=== PATIENT | female | born 1985 | race Caucasian/White ===

== ENCOUNTER 2023-12-27 15:19 | Outpatient (AMB) | payer OTHER, SELFPAY ==
--- NOTE | 2023-12-27 15:30 | MHC.PC.OV ---
Vital Signs 12/27/23 15:31 Height 5 ft 1.25 in Weight 120 lb BMI 22.5 BP 102/60 Blood Pressure Location Rt brachial Position Sitting Respiration 12 Pulse 84 Pulse Source Pulse Oximeter Pulse Oximetry (%) 99 Oxygen Delivery Method Room Air Intake Visit Reasons: Establish Care / Physical Intake Note: Patient reports she has no concerns, would like Iron refilled. Wire Bender Hand Required: No Accompanied by: Self / Same As Patient Allergies No Known Allergies Allergy (Verified 12/27/23 15:35) Tobacco use date assessed: 12/27/23 Dental Screening Dental Screen Date: 12/27/23 Did you have a dental visit in the last 12 months?: Yes Did you have a dental problem in the last 6 months where you did not have access to dental care?: No Was dental information given to patient?: Patient has dentist HPI HPI Comments History of Present Illness Details The patient is a 38-year-old female with past medical history of anemia, food sensitivities presenting for follow-up 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 Has had issues with fatigue at times. Her boyfriend committed suicide a few years ago. This has taken some time to heal from. When she was seen last summer she had thrown her back out. She had previously been following at [facility]. When flares which is infrequent she increases the exercises she learned at home. Gynecology in 10/10/2022 Following with [facility] [employer]: Denies weight loss, fever and chills. HEENT: Denies changes in vision and hearing. RESPIRATORY: Denies SOB and cough. CV: Denies palpitations and CP GI: Denies abdominal pain, nausea, vomiting and diarrhea. : Denies dysuria and urinary frequency. MSK: Denies new myalgia and joint pain. SKIN: Denies rash and pruritus. NEUROLOGICAL: Denies headache PSYCHIATRIC: Denies recent changes in mood. PHYSICAL EXAM: GENERAL: Alert and oriented x 3. NAD EYES: EOMI. Anicteric. HENT: Moist mucous membranes. No scleral icterus. No cervical lymphadenopathy. LUNGS: Clear to auscultation bilaterally. CARDIOVASCULAR: Regular rate and rhythm. No murmur. No JVD. ABDOMEN: Soft, non-tender +bs EXTREMITIES: No edema. Non-tender. SKIN: No rashes or lesions. Warm. NEUROLOGIC: No focal neurological deficits. CN II-XII grossly intact PSYCHIATRIC: Cooperative. Appropriate mood and affect [facility] Medical History Anemia Surgical History No pertinent past surgical history Family History Father Cancer Mother Diabetes Hypertension Sister Multiple sclerosis Social History Household Members: None Housing: House Alcohol intake: current Alcohol intake frequency: a few times a month Patient Tobacco Use Status: Never used Tobacco e-Cigarette/Vaping Use: Never Used service: No Current occupational status: employed Current occupation: [employer] Cognitive needs: No Hearing needs: No Vision needs: No Questionnaire PHQ-9 Over the last 2 weeks, how often have you been bothered by any of the following problems? 1. Little interest or pleasure in doing things: not at all 2. Feeling down, depressed, or hopeless: not at all 3. Trouble falling or staying asleep, or sleeping too much: several days 4. Feeling tired or having little energy: several days 5. Poor appetite or overeating: several days 6. Feeling bad about yourself - or that you are a failure or have let yourself or your family down: not at all 7. Trouble concentrating on things, such as reading the newspaper or watching television: not at all 8. Moving or speaking so slowly that other people could have noticed. Or the opposite - being so fidgety or restless that you have been moving around a lot more than usual: not at all 9. Thoughts that you would be better off or of hurting yourself in some way: not at all Total score: 3 Depression Screening Interpretation: Negative (neg) Depression Screening Done: Yes 04213 - PHQ-9 Billing: Yes Source: Developed by Drs. Guzman France, Donna Reagan, Darrel Church and colleagues, with an educational hugh from [employer]. Thrive Questionnaire Date Thrive assessed: 12/27/23 I am a: Patient What is your living situation today?: I have a steady place to live Within the past 12 months, did the food you bought not last and you didn't have the money to get more?: Never true Within the past 12 months, did you worry whether your food would run out before you got money to buy more?: Never true Do you have trouble paying for medicines?: No Do you have trouble getting transportation to medical appointments?: No Do you have trouble paying your heating and electricity bill?: No Do you have trouble taking care of your child, family member or friend?: No Do you have trouble with day-to-day activities such as bathing, preparing meals, shopping, managing finances, etc.?: No Are you currently unemployed and looking for a job?: No Are you interested in more education?: No Please select the resources that you would like help with: None Currently or been in a relationship where the following occur: No concerns reported THRIVE Score: 0 AUDIT C Alcohol Use Questionnaire (AUDIT-C) 1. How often do you have a drink containing alcohol?: Monthly or less 2. How many drinks containing alcohol do you have on a typical day when you are drinking?: 1 or 2 3. How often do you have six or more drinks on one occasion?: Never Total Score: 1 Score Reviewed/Action Taken: Yes ARIS-7 AMB Questionnaire ARIS-7 Date ARIS - 7 assessed: 12/27/23 Feeling nervous, anxious, or on edge: 1 = Several days Not being able to stop or control worryin = Several days Worrying too much about different things: 1 = Several days Trouble relaxin = Several days Being so restless that it is hard to sit still: 0 = Not at all Becoming easily annoyed or irritable: 1 = Several days Feeling afraid as if something awful might happen: 0 = Not at all Total ARIS-7 score (0-4 normal; 5-9 mild; 10-14 moderate; 15-21 severe): 5 Source: Developed by Drs. Guzman France, Donna Reagan, Darrel Church and colleagues, with an educational hugh from [employer]. ARIS-7 Assessment Billing ARIS-7 Assessment Tool: ARIS-7 Assessment 87463 (reviewed. tried lorazepam in the past. made groggy. does not want ssri. doing ok) Physical exam (Primary Care) Vital Signs: Last Vital Signs Pulse 84 12/27/23 15:31 Resp 12 12/27/23 15:31 BP 102/60 12/27/23 15:31 Pulse Ox 99 12/27/23 15:31 Oxygen Delivery Method Room Air 12/27/23 15:31 BMI result Body Mass Index 22.5 Tobacco/Smoking Status: Tobacco use Status Tobacco use date assessed 12/27/23 12/27/23 15:48 Patient Tobacco Use Status Never used Tobacco 12/27/23 15:48 e-Cigarette/Vaping Use Never Used 12/27/23 15:48 PHQ-9: PHQ-9 Score PHQ-9: Total score 3 12/27/23 22:58 Depression Screening Interpretation: Negative (neg) Thrive Assessment: Date of Thrive Assessment Date Thrive assessed 12/27/23 12/27/23 15:48 Currently or been in a relationship where the following occur: No concerns reported Assessment and Plan Assessment & Plan (1) Anemia: Code(s): D64.9 - Anemia, unspecified Qualifiers: Anemia type: iron deficiency Iron deficiency anemia type: unspecified iron deficiency Qualified Code(s): D50.9 - Iron deficiency anemia, unspecified Plan: Labs ordered. Currently taking iron (2) Fatigue: Code(s): R53.83 - Other fatigue Qualifiers: Fatigue type: chronic, unspecified Qualified Code(s): R53.82 - Chronic fatigue, unspecified Plan: Multifactorial. continue to monitor depression anxiety and labs (3) Screening for hyperlipidemia: Code(s): Z13.220 - Encounter for screening for lipoid disorders Orders: Orders Complete Blood Count Auto Diff Today D64.9 - Anemia, unspecified, R53.83 - Other fatigue, Z13.220 - Encounter for screening for lipoid disorders, Z13.228 - Encounter for screening for other metabolic disorders Comprehensive Met. Panel Today D64.9 - Anemia, unspecified, R53.83 - Other fatigue, Z13.220 - Encounter for screening for lipoid disorders, Z13.228 - Encounter for screening for other metabolic disorders Lipid Panel Today D64.9 - Anemia, unspecified, R53.83 - Other fatigue, Z13.220 - Encounter for screening for lipoid disorders, Z13.228 - Encounter for screening for other metabolic disorders Vitamin B12 and Folate Today D64.9 - Anemia, unspecified, R53.83 - Other fatigue, Z13.220 - Encounter for screening for lipoid disorders, Z13.228 - Encounter for screening for other metabolic disorders IRON PROFILE Today D64.9 - Anemia, unspecified, R53.83 - Other fatigue, Z13.220 - Encounter for screening for lipoid disorders, Z13.228 - Encounter for screening for other metabolic disorders Referrals Dermatology Referral Z12.83 - Encounter for screening for malignant neoplasm of skin Medications: New ferrous sulfate 325 mg PO DAILY 90 tabs 3RF Coding Level of Care Code Est Pt Level 4 (68167) Complex EM visit Add On G2211 Diagnoses Iron deficiency anemia, unspecified iron deficiency anemia type D50.9 Anemia type: iron deficiency Iron deficiency anemia type: unspecified iron deficiency Chronic fatigue R53.82 Fatigue type: chronic, unspecified Screening for hyperlipidemia Z13.220 Additional Codes ARIS-7 Assessment Billing - ARIS-7 Assessment Tool: ARIS-7 Assessment 18601 ([id number])
[2023-12-27 15:31] VITALS: BP 102/60; PULSE 84; RESP 12; O2SAT 99; BMI 22.5
== END 2023-12-27 16:22 | disposition home or self-care (01) ==
PROVIDERS: PCP Internal Medicine; Visit Provider Internal Medicine
DX: D50.9 Iron deficiency anemia, unspecified (principal); R53.82 Chronic fatigue, unspecified; Z13.220 Encounter for screening for lipoid disorders
CPT/HCPCS: 99214

== ENCOUNTER 2023-12-29 10:15 | Outpatient (REF) | payer OTHER, SELFPAY ==
[2023-12-29 14:13] LABS: MANUAL DIFF FLAG NO
[2023-12-29 14:19] LABS: Basophils Percent Auto 0.5 % (0-2); Eosinophils Absolute Auto 0.1 X10*3/uL (0.0-0.4); Eosinophils Percent Auto 0.9 % (0-4); Hematocrit 36.2 % (37.0-47.0); Imm Gran Abs Auto 0.04 X10*3/uL (0.00-0.03); Imm Gran Pct Auto 0.6 % (0.0-0.4); Lymphocytes Absolute Auto 2.3 X10*3/uL (1.2-4.9); Lymphocytes Percent Auto 35.8 % (20-40); Mean Corpuscular HGB Conc 33.1 g/dl (31.0-35.0); Mean Corpuscular Hemoglobin 30.2 pg (27.0-33.0); Mean Platelet Volume 10.1 fL (9.4-12.3); Monocytes Absolute Auto 0.4 X10*3/uL (0.1-1.2); Monocytes Percent Auto 6.8 % (2-11); Neutrophils Absolute Auto 3.6 x10*3/uL (2.0-8.3); Neutrophils Percent Auto 55.4 % (45-73); Platelet Count 246 X10*3/uL (160-400); Red Blood Count 3.98 X10*6/uL (4.20-5.50); Red Cell Distribution Width 13.1 % (11.0-16.0); White Blood Count 6.4 X10*3/uL (4.8-10.8)
[2023-12-29 14:49] LABS: Alanine Aminotransferase 9 U/L (0-31); Albumin Level 4.3 g/dL (3.5-5.0); Alkaline Phosphatase 33 U/L (39-117); Anion Gap 10 (12-20); Aspartate Amino Transferase 17 U/L (5-31); Bilirubin Total 0.7 mg/dL (0.0-1.0); Blood Urea Nitrogen 10 mg/dL (9-16); Calcium 9.4 mg/dL (8.4-10.2); Carbon Dioxide 27 mmol/L (22-29); Chloride 106 mmol/L (96-108); Cholesterol 196 mg/dL (<200); Estimated Glomerular Filt Rate > 60; Glucose Random 88 mg/dL (60-115); HDL Cholesterol 59 mg/dL (>40); Iron 98 mcg/dL (30-160); LDL Cholesterol Calculated 125 mg/dL (<100); Percent Iron Saturation 37 % (15-50); Potassium 4.3 mmol/L (3.3-5.1); Sodium 139 mmol/L (135-145); Total Iron Binding Capacity 262 mcg/dL (228-428); Total Protein 6.4 g/dL (6.5-8.0); Triglycerides 61 mg/dL (<150); Unsaturated Iron Binding 164 ug/dL
[2023-12-29 15:06] LABS: Folate 12.9 ng/mL (> or = 4.0); Vitamin B12 493 pg/mL (200-900)
== END 2023-12-29 10:16 | disposition home or self-care (01) ==
LOC: HO.WFDLDS 10:15
PROVIDERS: Visit Provider Internal Medicine
DX: R53.83 Other fatigue (principal); D64.9 Anemia, unspecified; Z13.220 Encounter for screening for lipoid disorders; Z13.228 Encounter for screening for other metabolic disorders
CPT/HCPCS: 36415; 80053; 80061; 82607; 82746; 83540; 85025

== ENCOUNTER → 2024-06-27 15:06 | Outpatient (BNVA) | payer OTHER, SELFPAY | PROVIDERS: PCP Internal Medicine; Visit Provider Internal Medicine | DX: Z00.00 Encounter for general adult medical examination without abnormal findings (principal); M54.50 Low back pain, unspecified; D50.9 Iron deficiency anemia, unspecified; Z13.220 Encounter for screening for lipoid disorders; Z13.228 Encounter for screening for other metabolic disorders | CPT/HCPCS: 96127 ==

== ENCOUNTER 2024-06-27 15:43 | Outpatient (REF) | payer OTHER, SELFPAY ==
[2024-06-27 17:51] LABS: MANUAL DIFF FLAG NO
[2024-06-27 18:08] LABS: Basophils Absolute Auto 0.1 X10*3/uL (0.0-0.2); Basophils Percent Auto 0.7 % (0-2); Eosinophils Absolute Auto 0.1 X10*3/uL (0.0-0.4); Eosinophils Percent Auto 0.9 % (0-4); Hematocrit 36.8 % (37.0-47.0); Hemoglobin 12.2 g/dl (12.0-16.0); Imm Gran Abs Auto 0.01 X10*3/uL (0.00-0.03); Imm Gran Pct Auto 0.1 % (0.0-0.4); Lymphocytes Absolute Auto 2.8 X10*3/uL (1.2-4.9); Lymphocytes Percent Auto 41.2 % (20-40); Mean Corpuscular HGB Conc 33.2 g/dl (31.0-35.0); Mean Corpuscular Hemoglobin 29.7 pg (27.0-33.0); Mean Corpuscular Volume 89.5 fL (80.0-98.0); Mean Platelet Volume 9.8 fL (9.4-12.3); Monocytes Absolute Auto 0.4 X10*3/uL (0.1-1.2); Monocytes Percent Auto 6.2 % (2-11); Neutrophils Absolute Auto 3.5 x10*3/uL (2.0-8.3); Neutrophils Percent Auto 50.9 % (45-73); Platelet Count 277 X10*3/uL (160-400); Red Blood Count 4.11 X10*6/uL (4.20-5.50); Red Cell Distribution Width 12.7 % (11.0-16.0); White Blood Count 6.8 X10*3/uL (4.8-10.8)
[2024-06-27 18:26] LABS: Alanine Aminotransferase 26 U/L (0-31); Albumin Level 4.5 g/dL (3.5-5.0); Alkaline Phosphatase 41 U/L (39-117); Anion Gap 14 (12-20); Aspartate Amino Transferase 29 U/L (5-31); Bilirubin Total 0.3 mg/dL (0.0-1.0); Blood Urea Nitrogen 15 mg/dL (9-16); Calcium 9.6 mg/dL (8.4-10.2); Carbon Dioxide 27 mmol/L (22-29); Chloride 105 mmol/L (96-108); Cholesterol 234 mg/dL (<200); Estimated Glomerular Filt Rate > 60; Glucose Random 93 mg/dL (60-115); HDL Cholesterol 63 mg/dL (>40); Iron 68 mcg/dL (30-160); LDL Cholesterol Calculated 156 mg/dL (<100); Percent Iron Saturation 25 % (15-50); Potassium 3.7 mmol/L (3.3-5.1); Sodium 142 mmol/L (135-145); Total Iron Binding Capacity 274 mcg/dL (228-428); Total Protein 7.3 g/dL (6.5-8.0); Triglycerides 79 mg/dL (<150); Unsaturated Iron Binding 206 ug/dL
[2024-06-30 14:53] LABS: Hematocrit 37.6 % (35.0-45.0); Hemoglobin 12.5 g/dL (11.7-15.5); MCV 90.2 fL (80.0-100.0); RBC 4.17 Million/uL (3.80-5.10); RDW 12.7 % (11.0-15.0)
== END 2024-06-27 15:44 | disposition home or self-care (01) ==
LOC: HO.WFDLDS 15:43
PROVIDERS: Visit Provider Internal Medicine
DX: Z13.220 Encounter for screening for lipoid disorders (principal); Z13.228 Encounter for screening for other metabolic disorders; D50.9 Iron deficiency anemia, unspecified; M54.50 Low back pain, unspecified; R53.82 Chronic fatigue, unspecified
CPT/HCPCS: 80053; 80061; 83020; 83540; 85014; 85018; 85025; 85041

== ENCOUNTER 2024-08-24 15:05 | Outpatient (AMB) | payer OTHER, SELFPAY ==
--- NOTE | 2024-08-24 15:19 | MHC.PC.OV ---
Vital Signs 08/24/24 15:23 Height 5 ft 1.25 in Weight 120 lb BMI 22.5 BP 98/68 Blood Pressure Location Rt brachial Position Sitting Respiration 12 Pulse 97 Pulse Source Pulse Oximeter Pulse Oximetry (%) 99 Oxygen Delivery Method Room Air Intake Visit Reasons: Increased of Anxiety Intake Note: Increased anxiety Script Worker Required: No Allergies No Known Allergies Allergy (Verified 08/24/24 15:20) Medication List - Last Reconciled 08/24/24 by Jaida Blas PA-C ferrous sulfate 325 mg PO DAILY loratadine (Allergy Relief (loratadine)) 10 mg PO DAILY lysine (L-Lysine) 500 mg PO DAILY multivitamin 1 tab PO DAILY valerian root mg PO Tobacco use date assessed: 06/27/24 Dental Screening Dental Screen Date: 12/27/23 HPI Increased of Anxiety HPI Details Patient is a 39-year-old female with a significant past medical history of anxiety and fatigue presenting today for a problem visit regarding her anxiety. She normally follows with Dr. Stanley was last seen in June for a physical. 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 She is concerned that anxiety is causing physical symptoms. She states that for the last month or so she has been experiencing intermittent palpitations, fluttering and discomfort in her chest and sometimes feeling dizzy or lightheaded. The symptoms are not all related together. They usually happen when she is having a stressful conversation in the last time it happened was when she was going to her mother's oncology appointment. She is the primary caregiver for her was recently diagnosed with stage III lung cancer and has been battling bladder issues. She says that she is getting chemo and radiation and tolerating it well but she has also had radiation to the pelvis and it was causing vaginal pain and she is not tolerating this as much as she would like to be tolerating this. She states that she wants to make sure that this is truly anxiety and she is not ignoring underlying issues. She has been trying to control her anxiety with a therapist and valerian root. [facility] Medical History Anemia Surgical History No pertinent past surgical history Family History Father Cancer Mother Diabetes Hypertension Sister Multiple sclerosis Social History Household Members: None Housing: House Alcohol intake: current Alcohol intake frequency: a few times a month Patient Tobacco Use Status: Never used Tobacco e-Cigarette/Vaping Use: Never Used Second Hand Smoke Exposure: Yes service: No Current occupational status: employed Current occupation: [employer] Cognitive needs: No Hearing needs: No Vision needs: No Questionnaire Thrive Questionnaire Date Thrive assessed: 06/20/24 I am a: Patient What is your living situation today?: I have a steady place to live Within the past 12 months, did the food you bought not last and you didn't have the money to get more?: Never true Within the past 12 months, did you worry whether your food would run out before you got money to buy more?: Never true Do you have trouble paying for medicines?: No Do you have trouble getting transportation to medical appointments?: No Do you have trouble paying your heating and electricity bill?: No Do you have trouble taking care of your child, family member or friend?: No Do you have trouble with day-to-day activities such as bathing, preparing meals, shopping, managing finances, etc.?: No Are you currently unemployed and looking for a job?: No Are you interested in more education?: No Please select the resources that you would like help with: None Currently or been in a relationship where the following occur: No concerns reported THRIVE Score: 0 ARIS-7 AMB Questionnaire ARIS-7 Date ARIS - 7 assessed: 12/27/23 Source: Developed by Drs. Guzman France, Donna Reagan, Darrel Church and colleagues, with an educational hugh from [employer]. Physical exam (Primary Care) Tobacco/Smoking Status: Tobacco use Status Tobacco use date assessed 06/27/24 06/27/24 15:18 Patient Tobacco Use Status Never used Tobacco 06/27/24 15:14 e-Cigarette/Vaping Use Never Used 06/27/24 15:14 Thrive Assessment: Date of Thrive Assessment Date Thrive assessed 06/20/24 06/27/24 15:14 Currently or been in a relationship where the following occur: No concerns reported Const Orientation/consciousness: patient oriented x3 [facility] Ears: hearing grossly normal bilaterally Neck Thyroid: Thyroid normal Lymphatic: no lymphadenopathy noted Resp Auscultation: clear to auscultation bilaterally Cardio Rate: regular rate Rhythm: regular rhythm Heart sounds: S1 normal heart sound present and S2 normal heart sound present GI Inspection: Yes normal to inspection Palpation (GI): Soft to palpation and Other GI palpation findings present (nontender, no cva tenderness) Auscultation: normoactive bowel sounds Rectal Exam - Female: deferred Skin General skin exam: no rashes or lesions noted Neuro General: patient oriented x3, gait normal and no focal motor deficits Results Reviewed Results Reviewed: Laboratory Tests 06/27/24 15:44 WBC 6.8 RBC 4.11 L RBC (Send Out) 4.17 Hgb 12.2 Hgb (Send Out) 12.5 Hct 36.8 L Hct (Send Out) 37.6 Plt Count 277 Sodium 142 Potassium 3.7 Chloride 105 Carbon Dioxide 27 Anion Gap 14 BUN 15 Creatinine 0.76 Estimated GFR > 60 Random Glucose 93 Calcium 9.6 Iron 68 AST 29 ALT 26 Alkaline Phosphatase 41 Triglycerides 79 Cholesterol 234 H LDL Cholesterol, Calc 156 H HDL Cholesterol 63 Coding Level of Care Code Est Pt Level 4 (88461) Complex EM visit Add On G2211 Diagnoses Palpitations R00.2 Generalized anxiety disorder F41.1 Assessment & Plan Assessment & Plan (1) Palpitations: Code(s): R00.2 - Palpitations Category: Medical Plan: EKG today is normal sinus rhythm. EKG interpreted by myself and Dr. Stanley. Orthostats WNL. Holter monitor ordered. Labs ordered today. We did discuss triggers of palpitations. Short term follow up. If anything worsens or changes she will follow up sooner. (2) Generalized anxiety disorder: Code(s): F41.1 - Generalized anxiety disorder Category: Medical Plan: We will treat with Lexapro. Discussed risks and benefits and adverse effects of this medication. Orders: Orders Basic Metabolic Panel Today F41.1 - Generalized anxiety disorder, R00.2 - Palpitations TSH reflex Free T4 Today F41.1 - Generalized anxiety disorder, R00.2 - Palpitations AMB EKG-In Office Today F41.1 - Generalized anxiety disorder, R00.2 - Palpitations Complete Blood Count Auto Diff Today F41.1 - Generalized anxiety disorder, R00.2 - Palpitations Vitamin B12 and Folate Today F41.1 - Generalized anxiety disorder, R00.2 - Palpitations ECG holter monitor 24 hour Today F41.1 - Generalized anxiety disorder, R00.2 - Palpitations Medications: New escitalopram oxalate (Lexapro) 5 mg PO DAILY 90 tabs 0RF
[2024-08-24 15:23] VITALS: BP 98/68; PULSE 97; RESP 12; O2SAT 99; BMI 22.5
== END 2024-08-24 16:04 | disposition home or self-care (01) ==
LOC: HO.HMCFM 15:06
PROVIDERS: PCP Internal Medicine; Visit Provider Physician Assistant
DX: R00.2 Palpitations (principal); F41.1 Generalized anxiety disorder

== ENCOUNTER 2024-08-25 15:37 | Outpatient (REF) | payer OTHER, SELFPAY ==
[2024-08-25 17:39] LABS: MANUAL DIFF FLAG NO
[2024-08-25 17:56] LABS: Basophils Percent Auto 0.3 % (0-2); Eosinophils Percent Auto 0.1 % (0-4); Hematocrit 35.7 % (37.0-47.0); Hemoglobin 11.7 g/dl (12.0-16.0); Imm Gran Abs Auto 0.06 X10*3/uL (0.00-0.03); Imm Gran Pct Auto 0.7 % (0.0-0.4); Lymphocytes Absolute Auto 2.1 X10*3/uL (1.2-4.9); Lymphocytes Percent Auto 23.1 % (20-40); Mean Corpuscular HGB Conc 32.8 g/dl (31.0-35.0); Mean Corpuscular Hemoglobin 29.3 pg (27.0-33.0); Mean Corpuscular Volume 89.3 fL (80.0-98.0); Mean Platelet Volume 9.8 fL (9.4-12.3); Monocytes Absolute Auto 0.4 X10*3/uL (0.1-1.2); Monocytes Percent Auto 4.7 % (2-11); Neutrophils Absolute Auto 6.4 x10*3/uL (2.0-8.3); Neutrophils Percent Auto 71.1 % (45-73); Platelet Count 302 X10*3/uL (160-400)
[2024-08-25 17:59] LABS: Anion Gap 13 (12-20); Blood Urea Nitrogen 15 mg/dL (9-16); Calcium 9.7 mg/dL (8.4-10.2); Carbon Dioxide 26 mmol/L (22-29); Chloride 104 mmol/L (96-108); Estimated Glomerular Filt Rate > 60; Glucose Random 91 mg/dL (60-115); Potassium 3.9 mmol/L (3.3-5.1); Sodium 139 mmol/L (135-145)
[2024-08-25 18:46] LABS: Vitamin B12 575 pg/mL (200-900)
== END 2024-08-25 15:38 | disposition home or self-care (01) ==
LOC: HO.WFDLDS 15:37
PROVIDERS: Visit Provider Physician Assistant
DX: R00.2 Palpitations (principal); F41.1 Generalized anxiety disorder
CPT/HCPCS: 36415; 80048; 82607; 82746; 84443; 85025

== ENCOUNTER → 2024-09-07 12:56 | Outpatient (REF) | payer OTHER, SELFPAY | LOC: HO.CARD 12:56 | PROVIDERS: Visit Provider Physician Assistant | DX: R00.2 Palpitations (principal); F41.1 Generalized anxiety disorder | CPT/HCPCS: 93225 ==

== ENCOUNTER 2024-09-14 14:51 | Outpatient (AMB) | payer OTHER, SELFPAY ==
--- NOTE | 2024-09-14 15:09 | MHC.PC.OV ---
Vital Signs 09/14/24 15:13 Height 5 ft 1.25 in Weight 120 lb 2 oz BMI 22.5 BP 106/62 Blood Pressure Location Rt brachial Position Sitting Respiration 12 Pulse 72 Pulse Source Pulse Oximeter Pulse Oximetry (%) 98 Oxygen Delivery Method Room Air Intake Visit Reasons: anxiety med Intake Note: Follow up anxiety medication Survey Research Analyst Required: No Allergies No Known Allergies Allergy (Verified 09/14/24 15:10) Medication List - Last Reconciled 09/14/24 by Jaida Blas PA-C escitalopram oxalate (Lexapro) 5 mg PO DAILY ferrous sulfate 325 mg PO DAILY loratadine (Allergy Relief (loratadine)) 10 mg PO DAILY lysine (L-Lysine) 500 mg PO DAILY multivitamin 1 tab PO DAILY valerian root mg PO Tobacco use date assessed: 09/14/24 Dental Screening Dental Screen Date: 09/14/24 Did you have a dental visit in the last 12 months?: Yes Did you have a dental problem in the last 6 months where you did not have access to dental care?: No Was dental information given to patient?: Patient has dentist HPI anxiety med HPI Details Patient is a 39-year-old female who presents today for follow up. CV: Last appointment she was seen for palpitations and dizziness associated with anxiety/panic. She did her Holter a couple days ago. Results have not yet returned. She states that since our visit the palpitations and dizziness have been significantly improved. Psych: We did start Lexapro but she did take it for a few days but felt tired with the medication. She was wondering if it was interacting with the valerian root and magnesium so she is stopping this and then planning to restart the Lexapro. She says that the anxiety has gotten better since they went to her mother's last oncology appointment. She is starting work again in about a week and has some anxiety about this as she is used to worrying about her mother every day. No SI/HI. Heme: Has a history of iron-deficiency anemia and she is a little anemic despite taking iron every day. We will recheck this. She says that she switched the brand of the vitamin. [facility] Medical History Anemia Surgical History No pertinent past surgical history Family History Father Cancer Mother Diabetes Hypertension Sister Multiple sclerosis Social History (Updated 09/14/24 @ 15:50 by Saige Simth CMA) Household Members: None Housing: House Alcohol intake: current Alcohol intake frequency: a few times a month Patient Tobacco Use Status: Never used Tobacco e-Cigarette/Vaping Use: Never Used Second Hand Smoke Exposure: Yes Use of substances other than those prescribed or required for medical reasons: No service: No Current occupational status: employed Current occupation: [employer] Current occupational exposures/hazards: No Cognitive needs: No Hearing needs: No Vision needs: No Questionnaire PHQ-9 Over the last 2 weeks, how often have you been bothered by any of the following problems? 1. Little interest or pleasure in doing things: not at all 2. Feeling down, depressed, or hopeless: not at all 3. Trouble falling or staying asleep, or sleeping too much: not at all 4. Feeling tired or having little energy: more than half the days 5. Poor appetite or overeating: not at all 6. Feeling bad about yourself - or that you are a failure or have let yourself or your family down: not at all 7. Trouble concentrating on things, such as reading the newspaper or watching television: not at all 8. Moving or speaking so slowly that other people could have noticed. Or the opposite - being so fidgety or restless that you have been moving around a lot more than usual: not at all 9. Thoughts that you would be better off or of hurting yourself in some way: not at all Total score: 2 Depression Screening Interpretation: Negative Depression Screening Done: Yes 75498 - PHQ-9 Billing: Yes Source: Developed by Drs. Guzman France, Donna Reagan, Darrel Church and colleagues, with an educational hugh from [employer]. Thrive Questionnaire Date Thrive assessed: 09/14/24 I am a: Patient What is your living situation today?: I have a steady place to live Within the past 12 months, did the food you bought not last and you didn't have the money to get more?: Never true Within the past 12 months, did you worry whether your food would run out before you got money to buy more?: Never true Do you have trouble paying for medicines?: No Do you have trouble getting transportation to medical appointments?: No Do you have trouble paying your heating and electricity bill?: No Do you have trouble taking care of your child, family member or friend?: No Do you have trouble with day-to-day activities such as bathing, preparing meals, shopping, managing finances, etc.?: No Are you currently unemployed and looking for a job?: No Are you interested in more education?: No Please select the resources that you would like help with: None Currently or been in a relationship where the following occur: No concerns reported THRIVE Score: 0 AUDIT C Alcohol Use Questionnaire (AUDIT-C) 1. How often do you have a drink containing alcohol?: Monthly or less 2. How many drinks containing alcohol do you have on a typical day when you are drinking?: 1 or 2 3. How often do you have six or more drinks on one occasion?: Never Total Score: 1 ARIS-7 AMB Questionnaire ARIS-7 Date ARIS - 7 assessed: 09/14/24 Feeling nervous, anxious, or on edge: 1 = Several days Not being able to stop or control worryin = Not at all Worrying too much about different things: 1 = Several days Trouble relaxin = Not at all Being so restless that it is hard to sit still: 0 = Not at all Becoming easily annoyed or irritable: 0 = Not at all Feeling afraid as if something awful might happen: 0 = Not at all Total ARIS-7 score (0-4 normal; 5-9 mild; 10-14 moderate; 15-21 severe): 2 Source: Developed by Drs. Guzman France, Donna Reagan, Darrel Church and colleagues, with an educational hugh from [employer]. ARIS-7 Assessment Billing ARIS-7 Assessment Tool: ARIS-7 Assessment 54161 Physical exam (Primary Care) Vital Signs: Last Vital Signs Pulse 72 09/14/24 15:13 Resp 12 09/14/24 15:13 BP 106/62 09/14/24 15:13 Pulse Ox 98 09/14/24 15:13 Oxygen Delivery Method Room Air 09/14/24 15:13 BMI result Body Mass Index 22.5 Tobacco/Smoking Status: Tobacco use Status Tobacco use date assessed 09/14/24 09/14/24 15:16 Patient Tobacco Use Status Never used Tobacco 09/14/24 15:16 e-Cigarette/Vaping Use Never Used 09/14/24 15:16 PHQ-9: PHQ-9 Score PHQ-9: Total score 2 09/14/24 15:50 Depression Screening Interpretation: Negative Thrive Assessment: Date of Thrive Assessment Date Thrive assessed 09/14/24 09/14/24 15:16 Currently or been in a relationship where the following occur: No concerns reported Coding Level of Care Code Est Pt Level 4 (47686) Complex EM visit Add On G2211 Diagnoses Iron deficiency anemia, unspecified iron deficiency anemia type D50.9 Anemia type: iron deficiency Iron deficiency anemia type: unspecified iron deficiency Generalized anxiety disorder F41.1 Additional Codes ARIS-7 Assessment Billing - ARIS-7 Assessment Tool: ARIS-7 Assessment 44680 ([id number]) PHQ-9 - 65904 - PHQ-9 Billing: Yes ([id number]) Assessment & Plan Assessment & Plan (1) Anemia: Code(s): D64.9 - Anemia, unspecified Category: Medical Qualifiers: Anemia type: iron deficiency Iron deficiency anemia type: unspecified iron deficiency Qualified Code(s): D50.9 - Iron deficiency anemia, unspecified Plan: CBC ordered (2) Generalized anxiety disorder: Code(s): F41.1 - Generalized anxiety disorder Category: Medical Plan: She will start Lexapro and follow up in a month. Sooner if needed. Patient understands and agrees with the plan. Orders: Orders Complete Blood Count Auto Diff 09/14/24 D50.9 - Iron deficiency anemia, unspecified Ferritin 09/14/24 D50.9 - Iron deficiency anemia, unspecified Vitamin B12 and Folate 09/14/24 D50.9 - Iron deficiency anemia, unspecified IRON PROFILE 09/14/24 D50.9 - Iron deficiency anemia, unspecified
[2024-09-14 15:13] VITALS: BP 106/62; PULSE 72; RESP 12; O2SAT 98; BMI 22.5
== END 2024-09-14 15:28 | disposition home or self-care (01) ==
LOC: HO.HMCFM 14:52
PROVIDERS: PCP Internal Medicine; Visit Provider Physician Assistant
DX: D50.9 Iron deficiency anemia, unspecified (principal); F41.1 Generalized anxiety disorder

== ENCOUNTER → 2024-09-14 14:51 | Outpatient (BNVA) | payer OTHER, SELFPAY | PROVIDERS: PCP Internal Medicine; Visit Provider Physician Assistant | DX: F41.1 Generalized anxiety disorder (principal); D50.9 Iron deficiency anemia, unspecified | CPT/HCPCS: 96127 ==

== ENCOUNTER 2024-11-20 11:27 | Outpatient (AMB) | payer OTHER, SELFPAY ==
--- NOTE | 2024-11-20 11:29 | A.OFFPC_ITS ---
Vital Signs 11/20/24 11:33 Height 5 ft 1.25 in Weight 121 lb 4 oz BMI 22.7 BP 98/68 Blood Pressure Location Lt brachial Position Sitting Respiration 12 Pulse 87 Pulse Source Pulse Oximeter Pulse Oximetry (%) 99 Oxygen Delivery Method Room Air Intake Visit Reasons: anxiety and labs Intake Note: Follow up. Stopped taking lexapro after trying for a week due to fatigue. Discuss GI or vascular nurse referral for anemia, per Dotty's recommendation. Hedis Review Nurse Required: No Allergies No Known Allergies Allergy (Verified 11/20/24 11:31) Tobacco use date assessed: 11/20/24 Dental Screening Dental Screen Date: 11/20/24 Did you have a dental visit in the last 12 months?: Yes Did you have a dental problem in the last 6 months where you did not have access to dental care?: No Was dental information given to patient?: Patient has dentist HPI HPI Comments History of Present Illness Details The patient is a 39-year-old female with past medical history of anemia, food sensitivities presenting for follow up Chronic fatigue -Anxiety is stable. She did not tolerate lexapro. Tries to take nothing but sometimes uses valerian. She previously had lorazepam which she used sparingly. Her boyfriend committed suicide a few years ago. She did well healing from that.Mother treated for lung cancer. Silvana gets very anxious during her follow up scans. -Anemia. She continues iron supplement. Still mildly anemic. periods only last 1.5 days. Electrophoresis was normal. Has had mild lymphocytosis in past. She does not have any serious GI symptoms but chronically is constipated-even predating iron MSK:no interval change. Intermittent flares of back pain. Follows with a chiropractor. She had previously been following [facility]. When flares which is infrequent she increases the exercises she learned at home. Gynecology in 10/10/2022. Following with Dermatology[facility] see HPI PHYSICAL EXAM: GENERAL: Alert and oriented x 3. NAD EYES: EOMI. Anicteric. HENT: Moist mucous membranes. No scleral icterus. No cervical lymphadenopathy. LUNGS: Clear to auscultation bilaterally. CARDIOVASCULAR: Regular rate and rhythm. No murmur. No JVD. ABDOMEN: Soft, non-tender +bs EXTREMITIES: No edema. Non-tender. SKIN: No rashes or lesions. Warm. NEUROLOGIC: No focal neurological deficits. CN II-XII grossly intact PSYCHIATRIC: Cooperative. Appropriate mood and affect [facility] Medical History Anemia Surgical History No pertinent past surgical history Family History Father Cancer Mother Diabetes Hypertension Sister Multiple sclerosis Social History (Updated 11/20/24 @ 16:45 by Saige Smith CMA) Household Members: None Housing: House Alcohol intake: current Alcohol intake frequency: a few times a month Patient Tobacco Use Status: Never used Tobacco e-Cigarette/Vaping Use: Never Used Second Hand Smoke Exposure: Yes Use of substances other than those prescribed or required for medical reasons: No service: No Current occupational status: employed Current occupation: [employer] Current occupational exposures/hazards: No Cognitive needs: No Hearing needs: No Vision needs: No Questionnaire Thrive Questionnaire Date Thrive assessed: 06/20/24 I am a: Patient What is your living situation today?: I have a steady place to live Within the past 12 months, did the food you bought not last and you didn't have the money to get more?: Never true Within the past 12 months, did you worry whether your food would run out before you got money to buy more?: Never true Do you have trouble paying for medicines?: No Do you have trouble getting transportation to medical appointments?: No Do you have trouble paying your heating and electricity bill?: No Do you have trouble taking care of your child, family member or friend?: No Do you have trouble with day-to-day activities such as bathing, preparing meals, shopping, managing finances, etc.?: No Are you currently unemployed and looking for a job?: No Are you interested in more education?: No Please select the resources that you would like help with: None Currently or been in a relationship where the following occur: No concerns reported THRIVE Score: 0 ARIS-7 AMB Questionnaire ARIS-7 Date ARIS - 7 assessed: 09/14/24 Source: Developed by Drs. Guzman France, Donna Reagan, Darrel Church and colleagues, with an educational hugh from [employer]. Physical exam (Primary Care) Vital Signs: Last Vital Signs Pulse 87 11/20/24 11:33 Resp 12 11/20/24 11:33 BP 98/68 11/20/24 11:33 Pulse Ox 99 11/20/24 11:33 Oxygen Delivery Method Room Air 11/20/24 11:33 BMI result Body Mass Index 22.7 Tobacco/Smoking Status: Tobacco use Status Tobacco use date assessed 11/20/24 11/20/24 11:34 Patient Tobacco Use Status Never used Tobacco 11/20/24 16:45 e-Cigarette/Vaping Use Never Used 11/20/24 16:45 Thrive Assessment: Date of Thrive Assessment Date Thrive assessed 06/20/24 11/20/24 11:30 Currently or been in a relationship where the following occur: No concerns reported Coding Level of Care Code Est Pt Level 4 (17560) Complex EM visit Add On G2211 Diagnoses Iron deficiency anemia, unspecified iron deficiency anemia type D50.9 Anemia type: iron deficiency Iron deficiency anemia type: unspecified iron deficiency Chronic idiopathic constipation K59.04 Constipation type: chronic idiopathic constipation Anxiety F41.9 Assessment & Plan Assessment & Plan (1) Anemia: Code(s): D64.9 - Anemia, unspecified Category: Medical Qualifiers: Anemia type: iron deficiency Iron deficiency anemia type: unspecified iron deficiency Qualified Code(s): D50.9 - Iron deficiency anemia, unspecified (2) Constipated: Code(s): K59.00 - Constipation, unspecified Category: Medical Qualifiers: Constipation type: chronic idiopathic constipation Qualified Code(s): K59.04 - Chronic idiopathic constipation (3) Anxiety: Code(s): F41.9 - Anxiety disorder, unspecified Category: Medical Plan 39 y/o for follow up Anemia-chronic fatigue. referral hematology. Fatigue, anemia, chronic consitipation-referral to GI Intermittent anxiety-did not tolerate lexapro, lorazepam prn Orders: Orders TSH reflex Free T4 Today D50.9 - Iron deficiency anemia, unspecified, R53.83 - Other fatigue, Z13.220 - Encounter for screening for lipoid disorders Complete Blood Count Auto Diff Today D50.9 - Iron deficiency anemia, unspecified, R53.83 - Other fatigue, Z13.220 - Encounter for screening for lipoid disorders IRON PROFILE Today D50.9 - Iron deficiency anemia, unspecified, R53.83 - Other fatigue, Z13.220 - Encounter for screening for lipoid disorders Vitamin B12 and Folate Today D50.9 - Iron deficiency anemia, unspecified, R53.83 - Other fatigue, Z13.220 - Encounter for screening for lipoid disorders Pathologist Review - CBC Today D50.9 - Iron deficiency anemia, unspecified, R53.83 - Other fatigue, Z13.220 - Encounter for screening for lipoid disorders Referrals Hematology & Oncology Referral D50.9 - Iron deficiency anemia, unspecified, R53.83 - Other fatigue, Z13.220 - Encounter for screening for lipoid disorders Gastroenterology Referral D50.9 - Iron deficiency anemia, unspecified, K59.00 - Constipation, unspecified Medications: New 2 lorazepam 0.5 mg PO BID PRN 30 tabs 1RF anxiety propranolol 10 mg PO BID PRN 30 tabs 0RF anxiety Discontinued escitalopram oxalate (Lexapro) Discontinued Reason: Doctor's Order 5 mg PO DAILY 90 tabs 0RF
[2024-11-20 11:33] VITALS: BP 98/68; PULSE 87; RESP 12; O2SAT 99; BMI 22.7
== END 2024-11-20 12:50 | disposition home or self-care (01) ==
LOC: HO.HMCFM 11:28
PROVIDERS: PCP Internal Medicine; Visit Provider Internal Medicine
DX: D50.9 Iron deficiency anemia, unspecified (principal); K59.04 Chronic idiopathic constipation; F41.9 Anxiety disorder, unspecified

== ENCOUNTER 2024-11-21 13:00 | Outpatient (REF) | payer OTHER, SELFPAY ==
[2024-11-21 14:52] LABS: MANUAL DIFF FLAG NO
[2024-11-21 14:56] LABS: Hematocrit 36.8 % (37.0-47.0); Hemoglobin 12.2 g/dl (12.0-16.0); Imm Gran Abs Auto 0.02 X10*3/uL (0.00-0.03); Imm Gran Pct Auto 0.3 % (0.0-0.4); Lymphocytes Absolute Auto 2.4 X10*3/uL (1.2-4.9); Mean Corpuscular HGB Conc 33.2 g/dl (31.0-35.0); Mean Corpuscular Hemoglobin 29.4 pg (27.0-33.0); Mean Corpuscular Volume 88.7 fL (80.0-98.0); NRBC Abs Auto 0.000 X10*3/uL (0.0-0.012); NRBC Pct Auto 0.0 /100WBC (0.0-0.2); Platelet Count 260 X10*3/uL (160-400); Red Blood Count 4.15 X10*6/uL (4.20-5.50); White Blood Count 7.4 X10*3/uL (4.8-10.8)
[2024-11-21 15:20] LABS: Iron 91 mcg/dL (30-160); Percent Iron Saturation 33 % (15-50); Total Iron Binding Capacity 275 mcg/dL (228-428); Unsaturated Iron Binding 184 ug/dL
[2024-11-21 15:21] LABS: Iron 92 mcg/dL (30-160); Percent Iron Saturation 33 % (15-50); Total Iron Binding Capacity 279 mcg/dL (228-428); Unsaturated Iron Binding 187 ug/dL
[2024-11-21 15:40] LABS: Ferritin 43 ng/mL (10-250)
[2024-11-21 16:09] LABS: Folate 14.9 ng/mL (> or = 4.0); Vitamin B12 486 pg/mL (200-900)
== END 2024-11-21 13:01 | disposition home or self-care (01) ==
LOC: HO.WFDLDS 13:00
PROVIDERS: Referring Provider Physician Assistant; Visit Provider Internal Medicine
DX: D50.9 Iron deficiency anemia, unspecified (principal); R53.83 Other fatigue; Z13.220 Encounter for screening for lipoid disorders
CPT/HCPCS: 36415; 82607; 82728; 82746; 83540; 84443; 85025

== ENCOUNTER → 2024-12-18 14:07 | Outpatient (BNV) | payer OTHER, SELFPAY | PROVIDERS: Visit Provider Nurse Practitioner Family | DX: D64.9 Anemia, unspecified (principal) | CPT/HCPCS: 99204 ==

== ENCOUNTER 2025-01-26 13:16 | Outpatient (REF) | payer OTHER, SELFPAY ==
--- OUTSIDE RECORDS SUMMARY | 2015-10-25 | XMS_ITS | Encounter Summary ---
Author Organization [facility] Address [address] [place] [address] Phone Care Team Providers Care Beadworker Name Role Phone Kelsey Brown MD Primary Care Provider [phone] Reason for Visit * MRI/CAT Scan - Closed Specialty Diagnoses / Procedures Referred By Contmelani t Referred To Contact Radiology Procedures CT Neck Outside (No Interpretation) System, Provider Not In, [facility] [address] Referral ID Status Reason Start Date Expiration Date Visits Re quested Visits Authorized [id number] Closed 11/14/2015 11/13/2016 1 1 Encounter Details Date Type Department Care Team (Late st Contact Info) Description 10/25/2015 Hospital Encounter [facility] [address] [place] [address] System, Provider Not In, [facility] [address] [address] Social History Tobacco Use Types Packs/Day Years Used Date Smoking Tobacco: Never Smokeless Tobacco: Never Alcohol Use Standard Drinks/Week Comments Yes 0 (1 standard drink = 0.6 oz pur e alcohol) Social Education Answer Date Recorded Are you interested in more education? Not on jony e 09/17/2022 Are you concerned about learning? Not on file 09/17/2022 No 09/17/2022 No 09/17/2022 Digital Access Answer Date Recorded No 10/19/2022 No 10/19/2022 No 10/19/2022 Reliable internet access at home? Not on file 10/19/2022 Device with a working camera? Not on file Comments Unknown Sex and Gender Information Value Date Recorded Sex Assigned at Choose not to disclose 10:34 AM EDT Legal Sex Female 7:44 PM EST Gender Identity Choose not to disclose 10:34 AM EDT Sexual Orientation Choose not to disclose 2021 10:34 AM EDT documented as of this encounter Plan of Treatment Not on file documented as of this encounter Procedures Procedure Name Priority Date/Time Associated Diagnosis Comments CT NECK OUTSIDE (NO INTERPRETATION) Routine 10/25/2015 12:00 AM EDT documented in this encounter Results * CT Neck Outside (No Interpretation) (10/25/2015 12:00 AM EDT) Narrative [facility] - 11/14/2015 10:41 AM EDT This study is for PACS storage only and not for interpretation. us Provider Not In System [facility] W /OUT INTERPRETATION Final Result [facility] documented in this encounter Visit Diagnoses Not on filedocumented in this encounter Care Teams Beadworker Relationship Specialty Start Date End Date Kelsey Brown MD PCP - General Internal Medicine 07/17/15 documented as of this encounter Additional Source Comments The information contained in this document represents components of the legal health record. It is not the complete legal health record.[facility]
--- OUTSIDE RECORDS SUMMARY | 2025-01-26 13:29 | XMS_ITS | Clinical Summary ---
Author Organization [facility] Address [address] [place] [address] Phone Care Team Providers Care Border Inspector Name Role Phone Kelsey Brown MD Primary Care Provider Allergies No known active allergies Medications No known medications Active Problems No known active problems Family History Medical History Relation Comments Hypertension Paternal Grandmother Relation Status Comments Paternal Grandmother Social History Tobacco Use Types Packs/Day Years [...] not to disclose 2021 10:34 AM EDT Last Filed Vital Signs Vital Sign Reading Time Taken Comments Blood Pressure 100/60 02/05/2022 2:15 PM EDT Pulse 81 02/05/2022 2:15 PM EDT Temperature 36 C (96.8 F) 02/05/2022 2:15 PM EDT Respiratory Rate 16 07/17/2015 10:26 AM EST Oxygen Saturation 99% 02/05/2022 2:15 PM EDT Inhaled Oxygen Concentration - - Weight 50.8 kg (112 lb) 02/05/2022 2:15 PM EDT Height 154.9 cm (5' 1 ) 07/17/2015 10:26 AM EST Body Mass Index 21.16 07/17/2015 10:26 AM EST Plan of Treatment Health Maintenance Due Date Last Done Comments DEPRESSION SCREENING 1996 HEPATITIS C SCREENING 2002 HIV ONE-TIME SCREENING (18-6 5 YEARS) 2002 PAP SMEAR 2005 COVID-19 VACCINE (2023-2 5 season) 2024 01/15/2021, 12/25/2020 MAMMOGRAM 2024 INFLUENZA VACCINE (#1) 2024 03/13/2021 Adult Td,Tdap Booster 10/15/2030 10/15/2020 SMOKING STATUS SCREENING (On ce After 26 Yrs) Completed 02/05/2022 HEPATITIS A VACCINES Aged Out No long er eligible based on patient's age to complete this topic HIB VACCINES Aged Out No longer eligi ble based on patient's age to complete this topic MENINGOCOCCAL VACCINES (ACWY) Aged Out No longer eligible based on patient's age to complete this topic MENINGOCOCCAL VACCINES (B) Aged Out N o longer eligible based on patient's age to complete this topic PNEUMOCOCCAL VACCINES (0-49 years) Aged Out No longer eligible b ased on patient's age to complete this topic Medical Devices Not on file Insurance Member Subscriber Plan / Payer (Ef fective 2020-Present) Name:Silvana Sidhu Relation to Subscriber:Self Name:Silvana Sidhu Payer ID:Not on file Type:PPO Address: [address] [facility] ACO [facility] [address] [place] [address] [facility] Media Redefined ALLANCE ACO [facility] PPO PHCS [facility] Care Teams Border Inspector Relationship Specialty Start Date End Date Kelsey Brown MD PCP - General Internal Medicine 07/17/15 Additional Source Comments The information contained in this document represents components of the legal health record. It is not the complete legal health record.[facility]
--- OUTSIDE RECORDS SUMMARY | 2025-01-26 13:30 | XMS_ITS | Encounter Summary ---
Author Organization [facility] Address [address] [place] [address] Phone Care Team Providers Care Sql Programmer Analyst Name Role Phone Kelsey Brown MD Primary Care Provider Encounter Details Date Type Department Care Team (Late st Contact Info) Description 11/08/2015 Transcribe [facility] [address], [address] [place] [address] Andi Dias MD, MPH [address] [place] [address] [email or web address] Social History Tobacco Use Types Packs/Day Years Used Date Smoking Tobacco: Never Comments Unknown Sex and Gender Information Value Date Recorded Sex Assigned at Choose not to disclose 10:34 AM EDT Legal Sex Female 7:44 PM EST Gender Identity Choose not to disclose 10:34 AM EDT Sexual Orientation Choose not to disclose 2021 10:34 AM EDT documented as of this encounter Plan of Treatment Not on file documented as of this encounter Visit Diagnoses Not on filedocumented in this encounter Care Teams Sql Programmer Analyst Relationship Specialty Start Date End Date Kelsey Brown MD PCP - General Internal Medicine 07/17/15 documented as of this encounter Additional Source Comments The information contained in this document represents components of the legal health record. It is not the complete legal health record.[facility]
--- OUTSIDE RECORDS SUMMARY | 2025-01-26 13:30 | XMS_ITS | Encounter Summary ---
Author Organization [facility] Address [address] [place] [phone] Phone Care Team Providers Care Montessori Toddler Teacher Name Role Phone Kelsey Brown MD Primary Care Provider [phone] Reason for Referral * MRI/CAT Scan - Closed Specialty Diagnoses / Procedures Referred By Contmelani t Referred To Contact Radiology Procedures CT Neck Outside (No Interpretation) System, Provider Not In, PhD [employer] [address] [place] [address] Referral ID Status Reason Start Date Expiration Date Visits Re quested Visits Authorized [id number] Closed 11/14/2015 11/13/2016 1 1 Encounter Details Date Type Department Care Team (Late st Contact Info) Description 11/14/2015 Ancillary Orders [facility] IM OUTSIDE IMG [address] [place] [address] System, Provider Not In, PhD [employer] [address] [place] [id number] Social History Tobacco Use Types Packs/Day Years [...] on file documented as of this encounter Results * CT Neck Outside (No Interpretation) (10/25/2015 12:00 AM EDT) Narrative [facility] IMG INTERFACES - 11/14/2015 10:41 AM EDT This study is for PACS storage only and not for interpretation. us Provider Not In System PhD IMG OUTSIDE IMAGING W /OUT INTERPRETATION Final Result [facility] IMG INTERFACES documented in this encounter Visit Diagnoses Not on filedocumented in this encounter Care Teams Montessori Toddler Teacher Relationship Specialty Start Date End Date Kelsey Brown MD PCP - General Internal Medicine 07/17/15 documented as of this encounter Additional Source Comments The information contained in this document represents components of the legal health record. It is not the complete legal health record.[facility]
--- OUTSIDE RECORDS SUMMARY | 2025-01-26 13:30 | XMS_ITS ---
Author Name [facility] Organization Unknown Care Team Organization Name Specialty Phone Email Start Date End Da te [facility] Lauren Barron Primary Care 03/31/2022 01/10/2024
== END 2025-01-26 13:17 | disposition home or self-care (01) ==
LOC: HO.LAB 13:16
PROVIDERS: PCP Internal Medicine; Visit Provider Nurse Practitioner Family
DX: D64.9 Anemia, unspecified (principal)
CPT/HCPCS: 86880